=== PATIENT | female | born 1950 | race Caucasian/White ===

== ENCOUNTER 2018-01-21 12:09 | Emergency (ER) | payer OTHER ==
[~2018-01-21] VITALS: Ht 167.6 cm; Wt 140.3 kg
[~2018-01-21 12:09] MED LIST: ASPIR 8181 M1 PO; ATORVASTATIN CA20 MG PO; CEFTRIAXONE2 G1 IV; CENTRUM SILVER1 EAC3 PO; CYCLOBENZAPRINE5 MG PO; DIOVAN160 MG PO; DURAGESIC12 MCG TD; DURAGESIC25 MCG TD; DURAGESIC50 MCG TD; FENOFIBRATE54 M1 PO; FLEXERIL10 MG PO; GREEN TEA EXTR250 MG PO; HYDROCODON-ACE1 EAC7 PO; HYDROCODONE-AP1 EAC8 PO; IBUPROFEN200 M1 PO; LASIX40 MG PO; LIPITOR20 MG PO; LIPITOR40 MG PO; LORTAB 5-325 M1 EACH PO; NORCO 5/3251 TABLET PO; PAROXETINE HCL30 MG PO; PAXIL30 MG PO; PREDNISONE10 MG PO; SEROQUEL100 MG PO; TUMERIC PO; VALSARTAN160 MG PO; VERAPAMIL HCL120 M2 PO; VERAPAMIL HCL240 M2 PO; VERAPAMIL HCL240 MG PO
[2018-01-21] MEDS ORDERED: MOTRIN800 MG PO (15:14)
[2018-01-21] MEDS ORDERED: VIBRAMYCIN100 MG PO (15:14)
[2018-01-21] MEDS ORDERED: FUTURO RESTORI1 EACH MC (15:15)
[2018-01-21 16:12] LABS: HEMATOCRIT 39.1 % (36.0-46.0); HEMOGLOBIN 13.9 G/DL (11.9-15.5); MCH 33.8 PG (29.0-34.0); MCHC 35.5 G/DL (30.0-36.0); MCV 95.1 FL (83-99); PLATELET COUNT 244 K/uL (156-360); RBC DIS.WIDTH-CV 11.9 % (11.8-14.6); RBC DIS.WIDTH-SD 41.5 % (39-53); RED BLOOD COUNT 4.11 M/uL (3.80-5.20); WHITE BLOOD COUNT 9.6 K/uL (4.1-10.2)
[2018-01-21 16:23] LABS: CHLORIDE 104 mEq/L (99-109); POTASSIUM 3.4 mEq/L (3.7-5.4); SODIUM 139 mEq/L (136-147)
[2018-01-21 16:24] LABS: GLUCOSE 125 mg/dL (70-99)
[2018-01-21 16:28] LABS: CREATININE 0.7 mg/dL (0.6-1.3); GFR ESTIMATE (CALCULATED) > 59 mL/min/; SERUM ETHYL ALCOHOL < 10 mg/dL
[2018-01-21 16:29] LABS: UREA NITROGEN (BUN) 18 mg/dL (9-23)
[2018-01-21 18:02] VITALS: BP 155/2
== END 2018-01-21 18:03 | disposition home or self-care (01) ==
LOC: EME 12:09
PROVIDERS: Nurse Practitioner Family
DX: S40.011A Contusion of right shoulder, initial encounter (principal); F43.21 Adjustment disorder with depressed mood; F32.9 Major depressive disorder, single episode, unspecified; Z63.4 Disappearance and death of family member; L03.115 Cellulitis of right lower limb; L03.116 Cellulitis of left lower limb; M25.512 Pain in left shoulder; W20.8XXA Other cause of strike by thrown, projected or falling object, initial encounter; I10 Essential (primary) hypertension; E78.5 Hyperlipidemia, unspecified; Z88.1 Allergy status to other antibiotic agents
CPT/HCPCS: 73030; 80048; 81003; 85027; 90839; 99281; 99283; G0480

== ENCOUNTER 2018-01-25 00:26 | Inpatient (IN) | payer OTHER ==
[~2018-01-25] VITALS: Ht 167.6 cm; Wt 145.1 kg
[~2018-01-25 00:26] MED LIST changes: +FUTURO RESTORI1 EACH MC; +MOTRIN800 MG PO; +VIBRAMYCIN100 MG PO
[2018-01-25 00:55] LABS: HEMATOCRIT 39.7 % (36.0-46.0); MCH 33.9 PG (29.0-34.0); MCHC 35.3 G/DL (30.0-36.0); MCV 96.1 FL (83-99); PLATELET COUNT 276 K/uL (156-360); RBC DIS.WIDTH-CV 12.4 % (11.8-14.6); RBC DIS.WIDTH-SD 43.5 % (39-53); RED BLOOD COUNT 4.13 M/uL (3.80-5.20); WHITE BLOOD COUNT 11.4 K/uL (4.1-10.2)
[2018-01-25 01:04] LABS: CHLORIDE 105 mEq/L (99-109); POTASSIUM 3.5 mEq/L (3.7-5.4); SODIUM 141 mEq/L (136-147)
[2018-01-25 01:12] LABS: ALBUMIN 3.6 g/dL (3.2-4.8)
[2018-01-25 01:15] LABS: GLUCOSE 211 mg/dL (70-99); TOTAL PROTEIN 6.7 g/dL (6.4-8.3)
[2018-01-25 01:16] LABS: TROP-I INTERPRETATION NEGATIVE; TROPONIN-I < 0.01 ng/mL (0.0-0.30)
[2018-01-25 01:17] LABS: TOTAL BILIRUBIN 0.4 mg/dL (0.0-1.0)
[2018-01-25 01:18] LABS: ALKALINE PHOSPHATASE 95 IU/L (3-129)
[2018-01-25 01:19] LABS: CREATININE 0.8 mg/dL (0.6-1.3); GFR ESTIMATE (CALCULATED) > 59 mL/min/
[2018-01-25 01:20] LABS: AST (GOT) 33 IU/L (2-34); UREA NITROGEN (BUN) 18 mg/dL (9-23)
[2018-01-25 01:21] LABS: ALT (GPT) 31 IU/L (3-49)
[2018-01-25 01:22] LABS: LIPASE 35 U/L (1.0-51.0)
[2018-01-25 05:37] LABS: TROP-I INTERPRETATION NEGATIVE; TROPONIN-I < 0.01 ng/mL (0.0-0.30)
[2018-01-25 06:28] LABS: INTER. NORMALIZED RATIO 1.1
[2018-01-25 06:31] LABS: PTT 28.7 SEC (25-37)
[2018-01-25] MEDS ORDERED: CYANOCOBALAM1000 MCG PO (09:50)
[2018-01-25] MEDS ORDERED: FENOFIBRATE54 M1 PO (11:27)
[2018-01-25] MEDS ORDERED: FLEXERIL5 MG PO (11:27)
[2018-01-25] MEDS ORDERED: KEFLEX250 MG PO (11:28)
[2018-01-25] MEDS ORDERED: TURMERIC PO (11:30)
[2018-01-25 11:49] LABS: TROP-I INTERPRETATION NEGATIVE; TROPONIN-I < 0.01 ng/mL (0.0-0.30)
[2018-01-25 12:34] LABS: HEMOGLOBIN A1c (GLYCOHEMOGLOB) 6.5 % (Below 5.7)
[2018-01-25 12:52] VITALS: BP 169/92
[2018-01-25 16:15] VITALS: BP 111/60
[2018-01-25 18:42] LABS: TROP-I INTERPRETATION NEGATIVE; TROPONIN-I < 0.01 ng/mL (0.0-0.30)
[2018-01-25 19:18] VITALS: BP 112/60
[2018-01-25 23:33] VITALS: BP 141/62
[2018-01-26 03:17] VITALS: BP 129/60
[2018-01-26 06:50] LABS: BASOPHIL (%) 0.5 % (0-1); EOSINOPHIL (%) 2.8 % (0-5); EOSINOPHIL COUNT 0.3 K/uL (0-0.3); HEMATOCRIT 38.6 % (36.0-46.0); HEMOGLOBIN 12.9 G/DL (11.9-15.5); IMMATURE GRANULOCYTE (%) 0.3 % (0.0-0.7); LYMPHOCYTE (%) 21.1 % (15-42); LYMPHOCYTE COUNT 1.9 K/uL (1.0-2.8); MCH 33.1 PG (29.0-34.0); MCHC 33.4 G/DL (30.0-36.0); MONOCYTE COUNT 0.7 K/uL (0-0.8); NEUTROPHIL (%) 67.3 % (45-76); NEUTROPHIL COUNT 5.9 K/uL (1.8-6.4); PLATELET COUNT 241 K/uL (156-360); RBC DIS.WIDTH-CV 12.8 % (11.8-14.6); RBC DIS.WIDTH-SD 46.1 % (39-53); WHITE BLOOD COUNT 8.8 K/uL (4.1-10.2)
[2018-01-26 07:14] LABS: CHLORIDE 102 MEQ/L (99-109); CREATININE 0.7 MG/DL (0.6-1.3); GFR ESTIMATE (CALCULATED) > 59 mL/min/; GLUCOSE 186 mg/dL (70-99); SODIUM 140 MEQ/L (136-147); UREA NITROGEN (BUN) 14 mg/dL (9-23)
[2018-01-26 07:30] VITALS: BP 127/65
[2018-01-26 12:37] VITALS: BP 118/59
[2018-01-26 15:16] VITALS: BP 110/56
[2018-01-26 19:40] VITALS: BP 130/59
[2018-01-27] VITALS (7 sets, daily range): BP systolic 121–181; BP diastolic 62–74
[2018-01-27] MEDS ORDERED: MOTRIN800 MG PO (13:13)
[2018-01-28 04:31] VITALS: BP 135/66
[2018-01-28 08:19] VITALS: BP 134/61
[2018-01-28 11:15] VITALS: BP 132/73
[2018-01-28 15:17] VITALS: BP 117/65
[2018-01-28 19:30] VITALS: BP 110/59
[2018-01-29 10:15] VITALS: BP 115/60
[2018-01-29 11:32] VITALS: BP 159/72
[2018-01-29 16:17] VITALS: BP 125/58
[2018-01-29 19:38] VITALS: BP 114/57
[2018-01-30 00:40] VITALS: BP 120/59
[2018-01-30 07:18] VITALS: BP 141/76
[2018-01-30 12:04] VITALS: BP 121/57
== END 2018-01-30 14:02 | disposition home or self-care (01) | DRG 300 ==
LOC: EME → EDBD 00:26 → EDOF 05:11 → 5WEST 05:11 → ENRESERV 05:12 → 5WEST 07:35 → ENRESERV 01-26 15:42 → 5WEST 01-26 17:36 → ENPENDDIS 01-27 → 5WEST 01-30 14:02
PROVIDERS: Emergency Medicine; Hospitalist; Internal Medicine
DX: I87.2 Venous insufficiency (chronic) (peripheral) (principal); E66.01 Morbid (severe) obesity due to excess calories; Z68.43 Body mass index [BMI] 50.0-59.9, adult; E11.649 Type 2 diabetes mellitus with hypoglycemia without coma; E11.65 Type 2 diabetes mellitus with hyperglycemia; R59.1 Generalized enlarged lymph nodes; M19.90 Unspecified osteoarthritis, unspecified site; R11.2 Nausea with vomiting, unspecified; F60.9 Personality disorder, unspecified; I35.0 Nonrheumatic aortic (valve) stenosis; F31.9 Bipolar disorder, unspecified; M25.511 Pain in right shoulder; E78.5 Hyperlipidemia, unspecified; R07.9 Chest pain, unspecified; Z96.653 Presence of artificial knee joint, bilateral; Z90.710 Acquired absence of both cervix and uterus; G89.29 Other chronic pain; I10 Essential (primary) hypertension; Z88.8 Allergy status to other drugs, medicaments and biological substances; Z88.1 Allergy status to other antibiotic agents; Z91.040 Latex allergy status; Z82.49 Family history of ischemic heart disease and other diseases of the circulatory system; Z86.69 Personal history of other diseases of the nervous system and sense organs; Z79.899 Other long term (current) drug therapy; I88.0 Nonspecific mesenteric lymphadenitis
CPT/HCPCS: 71045; 74177; 78582; 80048; 80053; 80202; 82948; 83036; 83690; 84484; 85025; 85027; 85610; 85652; 85730; 93005; 93970; 99281; 99284; A6214; A9540; A9567; G0378; J1650; J1815; J1885; J1940; J2405; J3370; J7030

== ENCOUNTER 2018-02-03 14:33 | Observation (INO) | payer OTHER ==
[~2018-02-03] VITALS: Ht 167.6 cm; Wt 140.4 kg
[~2018-02-03 14:33] MED LIST changes: +CYANOCOBALAM1000 MCG PO; +FLEXERIL5 MG PO; +KEFLEX250 MG PO; +PAXIL40 MG PO; +TURMERIC500 M2 PO; -VERAPAMIL HCL240 MG PO; +VERAPAMIL SR240 MG PO
[2018-02-03] MEDS ORDERED: DOXYCYCLINE HY100 MG PO (21:27)
[2018-02-03] MEDS ORDERED: METHOCARBAMOL500 MG PO (21:29)
[2018-02-03] MEDS ORDERED: TYLENOL EXTRA500 MG PO (21:30)
[2018-02-03 23:09] VITALS: BP 168/96
[2018-02-04] MEDS ORDERED: FUTURO RESTORI1 EACH MC (08:10)
[2018-02-04 09:55] VITALS: BP 129/74
[2018-02-04 12:40] VITALS: BP 161/80
== END 2018-02-04 16:00 ==
LOC: EME 14:33 → EDOF 21:26 → ENRESERV 21:30 → 5WEST 23:03
DX: M25.551 Pain in right hip (principal); M25.561 Pain in right knee; F31.9 Bipolar disorder, unspecified; F60.9 Personality disorder, unspecified; G89.29 Other chronic pain; E66.01 Morbid (severe) obesity due to excess calories; Z68.43 Body mass index [BMI] 50.0-59.9, adult; I10 Essential (primary) hypertension; E78.5 Hyperlipidemia, unspecified; M19.90 Unspecified osteoarthritis, unspecified site; Z90.49 Acquired absence of other specified parts of digestive tract; Z90.710 Acquired absence of both cervix and uterus; I87.8 Other specified disorders of veins; Z96.653 Presence of artificial knee joint, bilateral; Z88.0 Allergy status to penicillin; Z88.5 Allergy status to narcotic agent; Z88.8 Allergy status to other drugs, medicaments and biological substances; Z91.040 Latex allergy status; Z88.6 Allergy status to analgesic agent
CPT/HCPCS: 72192; 73502; 73564; 99281; 99285; G0378; G8978 GP CI; G8979 GP CH; G8987 GO CI; G8988 GO CH; Q0169

== ENCOUNTER 2018-02-04 14:29 | Inpatient (IN) | payer OTHER ==
[~2018-02-04] VITALS: Ht 167.6 cm; Wt 140.4 kg
[~2018-02-04 14:29] MED LIST changes: +DOXYCYCLINE HY100 MG PO; +METHOCARBAMOL500 MG PO; +TYLENOL EXTRA500 MG PO
[2018-02-04 16:16] VITALS: BP 139/65
[2018-02-04 16:19] VITALS: BP 139/65
[2018-02-05 07:54] VITALS: BP 132/77
[2018-02-05 15:37] VITALS: BP 123/67
[2018-02-06 07:40] VITALS: BP 154/89
[2018-02-06 15:37] VITALS: BP 105/53
[2018-02-07 07:39] VITALS: BP 132/80
[2018-02-07 15:33] VITALS: BP 113/54
[2018-02-08 09:34] VITALS: BP 131/77
[2018-02-08] MEDS ORDERED: FUROSEMIDE20 MG PO (13:24)
[2018-02-08] MEDS ORDERED: RISPERIDONE1 MG PO (13:24)
[2018-02-08] MEDS ORDERED: DOXYCYCLINE HY100 M3 PO (13:24)
[2018-02-08 16:02] VITALS: BP 105/54
== END 2018-02-08 18:07 | disposition home or self-care (01) | DRG 881 ==
LOC: 1WEST 14:29 → ENRESERV 14:39 → 1WEST 16:12
PROVIDERS: Psychiatry & Neurology Psychiatry
DX: F34.1 Dysthymic disorder (principal); F43.20 Adjustment disorder, unspecified; F60.9 Personality disorder, unspecified; L03.90 Cellulitis, unspecified; R42 Dizziness and giddiness; R51 Headache
CPT/HCPCS: 82948; 97150 GO; 97165 GO

== ENCOUNTER 2018-03-06 19:35 | Emergency (ER) | payer OTHER ==
[~2018-03-06] VITALS: Ht 167.6 cm; Wt 140.3 kg
[~2018-03-06 19:35] MED LIST changes: +DOXYCYCLINE HY100 M3 PO; +FUROSEMIDE20 MG PO; +RISPERIDONE1 MG PO
[2018-03-06 20:56] LABS: HEMATOCRIT 38.5 % (36.0-46.0); HEMOGLOBIN 13.5 G/DL (11.9-15.5); MCH 33.5 PG (29.0-34.0); MCHC 35.1 G/DL (30.0-36.0); MCV 95.5 FL (83-99); PLATELET COUNT 299 K/uL (156-360); RBC DIS.WIDTH-CV 12.4 % (11.8-14.6); RBC DIS.WIDTH-SD 42.9 % (39-53); RED BLOOD COUNT 4.03 M/uL (3.80-5.20); WHITE BLOOD COUNT 12.6 K/uL (4.1-10.2)
[2018-03-06 21:20] LABS: CHLORIDE 103 mEq/L (99-109); POTASSIUM 3.7 mEq/L (3.7-5.4); SODIUM 139 mEq/L (136-147)
[2018-03-06 21:22] LABS: GLUCOSE 155 mg/dL (70-99)
[2018-03-06 21:25] LABS: CREATININE 0.8 mg/dL (0.6-1.3); GFR ESTIMATE (CALCULATED) > 59 mL/min/
[2018-03-06 21:26] LABS: UREA NITROGEN (BUN) 16 mg/dL (9-23)
[2018-03-06 21:28] LABS: TROP-I INTERPRETATION NEGATIVE; TROPONIN-I < 0.01 ng/mL (0.0-0.30)
[2018-03-07 00:03] LABS: APPEARANCE CLEAR ((CLEAR)); BILIRUBIN NEGATIVE; BLOOD NEGATIVE; COLOR YELLOW ((YELLOW)); GLUCOSE (STRIP) NEGATIVE; KETONES NEGATIVE; LEUKOCYTES NEGATIVE; NITRITE NEGATIVE; PROTEIN (STRIP) NEGATIVE; SPECIFIC GRAVITY 1.017 (1.000-1.030); UCUL ADDED? NO; UROBILINOGEN 0.2 MG/DL (0.2-1.0)
[2018-03-07 02:50] VITALS: BP 156/92
== END 2018-03-07 02:55 | disposition home or self-care (01) ==
LOC: EME 19:35
PROVIDERS: Emergency Medicine
DX: B34.9 Viral infection, unspecified (principal); E78.5 Hyperlipidemia, unspecified; F31.9 Bipolar disorder, unspecified; F32.9 Major depressive disorder, single episode, unspecified; Z85.9 Personal history of malignant neoplasm, unspecified; Z90.49 Acquired absence of other specified parts of digestive tract; Z90.710 Acquired absence of both cervix and uterus; Z96.653 Presence of artificial knee joint, bilateral; Z88.5 Allergy status to narcotic agent; Z88.0 Allergy status to penicillin; Z88.1 Allergy status to other antibiotic agents; Z88.6 Allergy status to analgesic agent; Z91.040 Latex allergy status; Z91.09 Other allergy status, other than to drugs and biological substances
CPT/HCPCS: 71046; 80048; 81003; 84484; 85027; 87502; 93005; 99281; 99285; J7040

== ENCOUNTER 2018-04-09 23:03 | Inpatient (IN) | payer OTHER ==
[~2018-04-09] VITALS: Ht 172.7 cm; Wt 138.6 kg
[~2018-04-09 23:03] MED LIST changes: +APPLE CIDER VI300 MG PO; +LASIX20 MG PO; +MULTI-VITAMIN1 EAC4 PO; +PROMETHAZINE12.5 M1 PO; +VITAMIN B COMP1 EACH PO
[2018-04-10] MEDS ORDERED: PROMETHAZINE12.5 M1 PO (08:01)
[2018-04-10] MEDS ORDERED: ACETAMINOPHEN325 M3 PO (08:02)
[2018-04-10 08:40] VITALS: BP 113/55
[2018-04-10 17:07] VITALS: BP 118/67
[2018-04-10 20:21] VITALS: BP 112/60
[2018-04-11 00:03] VITALS: BP 98/54
[2018-04-11 07:42] VITALS: BP 126/59
[2018-04-11 15:57] VITALS: BP 107/53
[2018-04-11 23:36] VITALS: BP 104/57
[2018-04-12 07:03] VITALS: BP 122/69
[2018-04-12] MEDS ORDERED: ASPIRIN EC325 MG PO (09:09)
[2018-04-12] MEDS ORDERED: IBUPROFEN800 MG PO (09:09)
[2018-04-12] MEDS ORDERED: TRAMADOL HCL50 MG PO (09:09)
[2018-04-12] MEDS ORDERED: PROMETHAZINE HC25 M1 PO (12:06)
== END 2018-04-12 18:47 | disposition home or self-care (01) | DRG 483 ==
LOC: ENRESERV 23:03 → 3EAST 04-10 07:28 → 2SOUTH 04-10 07:28 → ENRESERV 04-10 14:39 → 3EAST 04-10 16:37
PROVIDERS: Orthopaedic Surgery
PROC: 0RRJ00Z Replacement of Right Shoulder Joint with Reverse Ball and Socket Synthetic Substitute, Open Approach (ICD-10-PCS; principal; 2018-04-10)
DX: M19.011 Primary osteoarthritis, right shoulder (principal); I10 Essential (primary) hypertension; I35.0 Nonrheumatic aortic (valve) stenosis; E11.9 Type 2 diabetes mellitus without complications; E78.5 Hyperlipidemia, unspecified; F31.9 Bipolar disorder, unspecified; G89.29 Other chronic pain; M54.9 Dorsalgia, unspecified; E66.01 Morbid (severe) obesity due to excess calories; Z68.42 Body mass index [BMI] 45.0-49.9, adult
CPT/HCPCS: 82948; 94799; C1713; J1100; J1170; J1815; J1885; J2250; J2370; J2405; J2795; J3010; J7030; J7050

== ENCOUNTER 2018-04-21 00:35 | Observation (INO) | payer OTHER ==
[~2018-04-21] VITALS: Ht 167.6 cm; Wt 135.7 kg
[~2018-04-21 00:35] MED LIST changes: +ACETAMINOPHEN325 M3 PO; -APPLE CIDER VI300 MG PO; +APPLE CIDER VI500 MG PO; +ASPIRIN EC325 MG PO; +IBUPROFEN800 MG PO; -PAXIL40 MG PO; +PROMETHAZINE HC25 M1 PO; +TRAMADOL HCL50 MG PO; +VERAPAMIL HCL240 MG PO; -VERAPAMIL SR240 MG PO
[2018-04-21 01:09] LABS: HEMATOCRIT 37.4 % (36.0-46.0); HEMOGLOBIN 12.8 G/DL (11.9-15.5); MCH 33.6 PG (29.0-34.0); MCHC 34.2 G/DL (30.0-36.0); MCV 98.2 FL (83-99); RBC DIS.WIDTH-SD 43.3 % (39-53); RED BLOOD COUNT 3.81 M/uL (3.80-5.20); WHITE BLOOD COUNT 8.5 K/uL (4.1-10.2)
[2018-04-21 01:13] LABS: PLATELET COUNT 172 K/uL (156-360)
[2018-04-21 01:17] LABS: ALBUMIN 3.2 g/dL (3.2-4.8)
[2018-04-21 01:18] LABS: CHLORIDE 100 mEq/L (99-109); POTASSIUM 3.8 mEq/L (3.7-5.4); SODIUM 138 mEq/L (136-147)
[2018-04-21 01:20] LABS: GLUCOSE 265 mg/dL (70-99); TOTAL PROTEIN 6.1 g/dL (6.4-8.3)
[2018-04-21 01:22] LABS: TOTAL BILIRUBIN 0.2 mg/dL (0.0-1.0)
[2018-04-21 01:23] LABS: ALKALINE PHOSPHATASE 91 IU/L (3-129)
[2018-04-21 01:24] LABS: CREATININE 0.8 mg/dL (0.6-1.3); GFR ESTIMATE (CALCULATED) > 59 mL/min/
[2018-04-21 01:25] LABS: AST (GOT) 31 IU/L (2-34); UREA NITROGEN (BUN) 15 mg/dL (9-23)
[2018-04-21 01:26] LABS: ALT (GPT) 32 IU/L (3-49)
[2018-04-21 01:27] LABS: LIPASE 31 U/L (1.0-51.0)
[2018-04-21 01:32] LABS: TROP-I INTERPRETATION NEGATIVE; TROPONIN-I < 0.01 ng/mL (0.0-0.30)
[2018-04-21] MEDS ORDERED: LITE COAT ASPI325 M1 PO (08:04)
[2018-04-21 08:25] LABS: TROP-I INTERPRETATION NEGATIVE; TROPONIN-I < 0.01 ng/mL (0.0-0.30)
[2018-04-21 13:46] VITALS: BP 137/87
[2018-04-21 14:26] LABS: TROP-I INTERPRETATION NEGATIVE; TROPONIN-I 0.01 ng/mL (0.0-0.30)
[2018-04-21 16:08] VITALS: BP 144/81
[2018-04-21 19:50] VITALS: BP 117/72
[2018-04-22 00:08] VITALS: BP 99/62
[2018-04-22 04:58] VITALS: BP 117/60
[2018-04-22 05:29] LABS: BASOPHIL (%) 0.9 % (0-1); BASOPHIL COUNT 0.1 K/uL (0-0.1); EOSINOPHIL (%) 3.7 % (0-5); EOSINOPHIL COUNT 0.3 K/uL (0-0.3); HEMATOCRIT 38.2 % (36.0-46.0); IMMATURE GRANULOCYTE (%) 0.6 % (0.0-0.7); LYMPHOCYTE (%) 25.3 % (15-42); LYMPHOCYTE COUNT 2.3 K/uL (1.0-2.8); MCH 32.6 PG (29.0-34.0); MCV 95.7 FL (83-99); MONOCYTE (%) 8.3 % (3-12); MONOCYTE COUNT 0.8 K/uL (0-0.8); NEUTROPHIL (%) 61.2 % (45-76); NEUTROPHIL COUNT 5.5 K/uL (1.8-6.4); RBC DIS.WIDTH-CV 12.4 % (11.8-14.6); RBC DIS.WIDTH-SD 43.1 % (39-53); RED BLOOD COUNT 3.99 M/uL (3.80-5.20)
[2018-04-22 05:40] LABS: PLATELET COUNT 259 K/uL (156-360)
[2018-04-22 05:58] LABS: CHLORIDE 101 MEQ/L (99-109); CREATININE 0.6 MG/DL (0.6-1.3); GFR ESTIMATE (CALCULATED) > 59 mL/min/; GLUCOSE 189 mg/dL (70-99); POTASSIUM 4.1 MEQ/L (3.7-5.4); SODIUM 137 MEQ/L (136-147); UREA NITROGEN (BUN) 16 mg/dL (9-23)
[2018-04-22 09:00] VITALS: BP 99/51
[2018-04-22 10:51] VITALS: BP 100/65
== END 2018-04-22 16:25 | disposition home or self-care (01) ==
LOC: EME → EDBD 00:35 → EME 00:35 → EDOF 05:54 → ENRESERV 05:57 → 4SOUTH 13:07
PROVIDERS: Emergency Medicine; Hospitalist; Physician Assistant; Student in an Organized Health Care Education/Training Program
DX: R07.9 Chest pain, unspecified (principal); I10 Essential (primary) hypertension; E78.5 Hyperlipidemia, unspecified; F31.9 Bipolar disorder, unspecified; E11.9 Type 2 diabetes mellitus without complications; I87.8 Other specified disorders of veins; I35.0 Nonrheumatic aortic (valve) stenosis; Z96.611 Presence of right artificial shoulder joint; D68.8 Other specified coagulation defects; I25.10 Atherosclerotic heart disease of native coronary artery without angina pectoris; R59.9 Enlarged lymph nodes, unspecified; Z90.49 Acquired absence of other specified parts of digestive tract; Z82.49 Family history of ischemic heart disease and other diseases of the circulatory system; Z90.710 Acquired absence of both cervix and uterus; Z88.0 Allergy status to penicillin; Z88.5 Allergy status to narcotic agent; Z88.1 Allergy status to other antibiotic agents; Z88.8 Allergy status to other drugs, medicaments and biological substances; Z91.048 Other nonmedicinal substance allergy status
CPT/HCPCS: 71045; 71275; 80048; 80053; 82948; 83690; 84484; 85025; 85027; 85379; 93005; 99281; 99285; G0378; J1644; J1815; J2405